=== PATIENT | male | born 1995 | race Caucasian/White ===

== ENCOUNTER 2020-01-30 05:37 | Day surgery (SDC) | payer BC, OTHER ==
[2020-01-30] MEDS ORDERED: LACTATED RINGERS 1,000 ML ONE (06:39)
[2020-01-30] MEDS ORDERED: DEXMEDETOMIDINE HCL 200 MCG/2 ML INJ IV ONE (10:48)
[2020-01-30] MEDS ORDERED: MIDAZOLAM INJ 2 MG/2 ML VIAL ONE (10:48)
[2020-01-30] MEDS ORDERED: fentaNYL CITRATE INJ 50 MCG/ML 2 ML AMP ONE (10:48)
[2020-01-30] MEDS ORDERED: BUPIVACAINE 0.5% W/EPI 30 ML VIAL INJ ONE (10:49)
[2020-01-30] MEDS ORDERED: levoFLOXacin 500MG IV 100 ML IVPB ONE (11:02)
[2020-01-30 13:09] VITALS: O2SAT 100
--- NOTE | 2020-01-30 13:19 | OP ---
DATE OF PROCEDURE: 01/30/20 PREOPERATIVE DIAGNOSIS: 1. Ventral hernia. POSTOPERATIVE DIAGNOSIS: 1. Incarcerated ventral hernia. PROCEDURE: 1. Repair of incarcerated ventral hernia, primary repair. SURGEON: Reno Cordon MD. ANESTHESIA: General and local. FINDINGS: Just above the umbilicus on the midline, he had a small ventral hernia with incarcerated preperitoneal fat. This was a quite small defect, but he is a thin young man, so it was noticeable and bothersome. COMPLICATIONS: None. ESTIMATED BLOOD LOSS: Minimal. CONDITION: Stable. PLAN: Discharge. INDICATION: As stated. PROCEDURE: General anesthesia was induced. He was prepped and draped in usual fashion. The hernia had been marked. A small vertical incision was made. Subcutaneous tissue was taken down. We dissected around the fat in the area and had to actually probe to find it. Once we did find the defect, we got into the hernia sac and identified preperitoneal fatty tissue. This was ligated at the hernia base. We were then able to reduce and identify the defect. It was maybe 1.5 cm. While lifting up the tissue, we very carefully placed a 0 PDS suture, tying it while burying the knot. He tolerated it fine. There was no bleeding. Of course, we lifted it to make sure we did not catch any underlying tissue. The wound, which was about 2 cm in length, was closed with interrupted 3-0 Vicryl followed by interrupted 4-0 Monocryl for the skin. Dressing was applied. He tolerated the procedure. He was taken to Recovery to be discharged. #[id number] cc: Reno Raman MD [facility]
[2020-01-30 13:37] VITALS: BP 100/59; TEMP 97.1
== END 2020-01-30 13:10 | disposition home or self-care (01) ==
LOC: AMB 05:37
PROVIDERS: ATTEND Surgery
DX: K43.6 Other and unspecified ventral hernia with obstruction, without gangrene (principal); Z88.8 Allergy status to other drugs, medicaments and biological substances
CPT/HCPCS: 00832; 36415; 49561; 80053; 85025; J1956; J2250; J3010; J7120